=== PATIENT | female | born 1965 | race African-American/Black ===

== ENCOUNTER 2019-12-09 21:06 | Inpatient (IN) ==
[2019-12-09] MEDS ORDERED: ASPIRIN 325 MG TABLET PO STA (21:28)
[2019-12-09] MEDS ORDERED: ONDANSETRON 4 MG/2 ML VIAL IV STA (21:28)
[2019-12-09] MEDS ORDERED: MORPHINE 4 MG/1 ML VIAL IV STA (21:28)
[2019-12-09] MEDS ORDERED: ALUM/MAG/SIMETH/LIDO VISC 1:1 30 ML BOTTLE PO STA (21:28)
[2019-12-09] MEDS ORDERED: NITROGLYCERIN 2% OINT 1 INCH/GM PACK TOP STA (21:28)
[2019-12-09 22:03] LABS: Basophils % 0.3 % (0.0-0.8); Hematocrit 38.6 VOL% (35.7-47.0); Lymphocytes % 26.5 % (21.3-54.2); Mean Corpuscular HGB Conc 31.1 GM/DL (32-36); Mean Corpuscular Volume 80.9 FL (87-102); Mean Platelet Volume 10.8 FL (9.6-12.0); Monocytes % 5.2 % (1.7-12.7); Platelet Count 122 T/CUMM (130-400); Red Blood Count 4.77 MC/CUMM (3.8-5.5); Red Cell Distribution Width 12.8 % (9.3-17.3); White Blood Count 3.6 T/CUMM (4-12)
[2019-12-09 22:15] LABS: PT Patient Result 10.7 SECS (9.8-11.9)
[2019-12-09 22:27] LABS: Albumin 2.9 G/DL (3.4-5.0); Bilirubin,Total 0.4 MG/DL (0.2-1.0); Calcium 8.2 MG/DL (8.5-10.1); Osmolality,Calculated 275.7 MOS/KG (273-304); Total Protein 7.4 G/DL (6.4-8.3)
[2019-12-09 22:28] LABS: Band Neutrophils 2 % (0-10); Lymphocytes 20 % (20-55); Platelet Estimate Adequate; Segmented Neutrophils 73 % (50-85); Total Cells Counted 100
[2019-12-09] MEDS ORDERED: POTASSIUM CHLORIDE 20 MEQ TABLET PO STA (22:47)
[2019-12-09 23:39] LABS: Ferritin 284.1 ng/ml (8-252)
[2019-12-09] MEDS ORDERED: HYDROXYCHLOROQUINE 200 MG TABLET PO STA (23:54)
[2019-12-09] MEDS ORDERED: AZITHROMYCIN INJ 500 MG in SODIUM CHLORIDE 0.9% 250 ML IV STA (23:54)
[2019-12-09] MEDS ORDERED: methylPREDNISolone SOD SUC 125 MG/2 ML VIAL IV STA (23:54)
[2019-12-10] MEDS ORDERED: ONDANSETRON 4 MG/2 ML VIAL IV PRN (01:16)
[2019-12-10] MEDS ORDERED: DEXTROSE 50% 25 GM/50 ML SYRINGE IV PRN (01:16)
[2019-12-10] MEDS ORDERED: GLUCAGON 1 MG VIAL IM PRN (01:16)
[2019-12-10] MEDS ORDERED: ZALEPLON 5 MG CAPSULE PO PRN (01:16)
[2019-12-10] MEDS ORDERED: POTASSIUM CHLORIDE 20 MEQ TABLET PO PRN (02:09)
[2019-12-10] MEDS: ENOXAPARIN 40 MG/0.4 ML SYRINGE SUBCUT SCH (03:00)
[2019-12-10] MEDS: cefTRIAXone 1,000 MG in SYRINGE 1 EACH IV SCH (03:00)
[2019-12-10 05:43] LABS: Hematocrit 38.8 VOL% (35.7-47.0); Hemoglobin 12.3 GM/DL (12.0-16.0); Immature Granulocytes % 0.3 %; Immature Granulocytes Absolute 0.01 #; Lymphocytes # 0.5 10*3/uL (1.4-4.0); Lymphocytes % 13.9 % (21.3-54.2); Mean Corpuscular HGB Conc 31.7 GM/DL (32-36); Mean Corpuscular Volume 79.7 FL (87-102); Mean Platelet Volume 11.9 FL (9.6-12.0); Monocytes % 2.4 % (1.7-12.7); Neutrophils % 83.4 % (38.7-73.9); Platelet Count 134 T/CUMM (130-400); Red Blood Count 4.87 MC/CUMM (3.8-5.5); Red Cell Distribution Width 12.8 % (9.3-17.3); White Blood Count 3.7 T/CUMM (4-12)
[2019-12-10 06:01] LABS: Alanine Aminotransferase 18 U/L (13-56); Albumin 2.9 G/DL (3.4-5.0); Alkaline Phosphatase 72 U/L (45-117); Aspartate Amino Transferase 24 U/L (0-37); Bilirubin,Total < 0.39 MG/DL (0.2-1.0); Blood Urea Nitrogen 5 MG/DL (7-18); Calcium 8.2 MG/DL (8.5-10.1); Estimated Glom Filtration Rate 86 ML/MIN; Ferritin 281.3 ng/ml (8-252); Glucose 201 MG/DL (74-106); Osmolality,Calculated 277.7 MOS/KG (273-304); Total Protein 7.3 G/DL (6.4-8.3)
[2019-12-10 06:11] LABS: Band Neutrophils 1 % (0-10); Hypochromasia 1+; Lymphocytes 10 % (20-55); Ovalocytes Slight; Platelet Estimate Adequate; Segmented Neutrophils 88 % (50-85); Total Cells Counted 100
[2019-12-10] MEDS ORDERED: DEXTROSE 10% 250 ML BAG IV PRN (07:00)
[2019-12-10] MEDS ORDERED: PANTOPRAZOLE 40 MG TABLET PO SCH (09:00)
[2019-12-10] MEDS: ZINC SULFATE 220 MG CAPSULE PO SCH (09:07)
[2019-12-10] MEDS ORDERED: HYDROXYCHLOROQUINE 200 MG TABLET PO ONE (15:00)
[2019-12-10] MEDS: AZITHROMYCIN 250 MG TABLET PO SCH (20:30)
[2019-12-11 09:25] LABS: Hemoglobin 11.7 GM/DL (12.0-16.0); Immature Granulocytes % 0.4 %; Immature Granulocytes Absolute 0.02 #; Lymphocytes # 0.9 10*3/uL (1.4-4.0); Lymphocytes % 18.4 % (21.3-54.2); Mean Corpuscular HGB Conc 31.6 GM/DL (32-36); Mean Corpuscular Volume 78.4 FL (87-102); Mean Platelet Volume 11.4 FL (9.6-12.0); Monocytes % 7.3 % (1.7-12.7); Neutrophils % 73.9 % (38.7-73.9); Platelet Count 163 T/CUMM (130-400); Red Blood Count 4.72 MC/CUMM (3.8-5.5); Red Cell Distribution Width 12.7 % (9.3-17.3); White Blood Count 4.8 T/CUMM (4-12)
[2019-12-11 09:42] LABS: Calcium 8.4 MG/DL (8.5-10.1); Osmolality,Calculated 280.5 MOS/KG (273-304)
[2019-12-11 09:48] LABS: Band Neutrophils 2 % (0-10); Hypochromasia 1+; Lymphocytes 16 % (20-55); Platelet Estimate Adequate; Segmented Neutrophils 77 % (50-85); Total Cells Counted 100
[2019-12-11] MEDS: amLODIPine 10 MG TABLET PO SCH (10:21)
[2019-12-11] MEDS: cefTRIAXone 1,000 MG in SYRINGE 1 EACH IV SCH (10:21)
[2019-12-11] MEDS: ENOXAPARIN 40 MG/0.4 ML SYRINGE SUBCUT SCH (10:21)
[2019-12-11] MEDS: ROSUVASTATIN 10 MG TABLET PO SCH (20:52)
[2019-12-11] MEDS: AZITHROMYCIN 250 MG TABLET PO SCH (20:52)
[2019-12-12 05:45] LABS: Hematocrit 37.2 VOL% (35.7-47.0); Hemoglobin 11.3 GM/DL (12.0-16.0); Immature Granulocytes % 0.4 %; Immature Granulocytes Absolute 0.02 #; Lymphocytes # 1.2 10*3/uL (1.4-4.0); Lymphocytes % 27.6 % (21.3-54.2); Mean Corpuscular HGB Conc 30.4 GM/DL (32-36); Mean Corpuscular Volume 82.5 FL (87-102); Monocytes % 7.8 % (1.7-12.7); Neutrophils % 64.2 % (38.7-73.9); Platelet Count 179 T/CUMM (130-400); Red Blood Count 4.51 MC/CUMM (3.8-5.5); White Blood Count 4.5 T/CUMM (4-12)
[2019-12-12 06:10] LABS: Calcium 8.2 MG/DL (8.5-10.1); Osmolality,Calculated 278.7 MOS/KG (273-304)
[2019-12-12 06:17] LABS: Hypochromasia 1+; Lymphocytes 20 % (20-55); Ovalocytes Slight; Platelet Estimate Adequate; Segmented Neutrophils 74 % (50-85); Total Cells Counted 100
[2019-12-12] MEDS: cefTRIAXone 1,000 MG in SYRINGE 1 EACH IV SCH (10:31)
[2019-12-12] MEDS: amLODIPine 10 MG TABLET PO SCH (10:31)
[2019-12-12] MEDS: ENOXAPARIN 40 MG/0.4 ML SYRINGE SUBCUT SCH (10:31)
[2019-12-12] MEDS: ZINC SULFATE 220 MG CAPSULE PO SCH (10:31)
[2019-12-12] MEDS: HYDROXYCHLOROQUINE 200 MG TABLET PO SCH ×2 (17:22→20:58)
[2019-12-12] MEDS: AZITHROMYCIN 250 MG TABLET PO SCH (20:58)
[2019-12-12] MEDS: ROSUVASTATIN 10 MG TABLET PO SCH (20:58)
[2019-12-13 05:46] LABS: Basophils % 0.2 % (0.0-0.8); Hematocrit 40.7 VOL% (35.7-47.0); Hemoglobin 12.4 GM/DL (12.0-16.0); Immature Granulocytes % 0.2 %; Immature Granulocytes Absolute 0.01 #; Lymphocytes # 1.2 10*3/uL (1.4-4.0); Mean Corpuscular HGB Conc 30.5 GM/DL (32-36); Mean Corpuscular Volume 81.6 FL (87-102); Mean Platelet Volume 10.6 FL (9.6-12.0); Monocytes % 8.7 % (1.7-12.7); Neutrophils % 64.9 % (38.7-73.9); Platelet Count 205 T/CUMM (130-400); Red Blood Count 4.99 MC/CUMM (3.8-5.5); Red Cell Distribution Width 12.8 % (9.3-17.3); White Blood Count 4.6 T/CUMM (4-12)
[2019-12-13 06:04] LABS: Calcium 8.4 MG/DL (8.5-10.1); Osmolality,Calculated 276.8 MOS/KG (273-304)
[2019-12-13 06:11] LABS: Hypochromasia Slight; Lymphocytes 23 % (20-55); Microcytosis Slight; Platelet Estimate Adequate; Segmented Neutrophils 71 % (50-85); Total Cells Counted 100
[2019-12-13] MEDS: amLODIPine 10 MG TABLET PO SCH (08:47)
[2019-12-13] MEDS: HYDROXYCHLOROQUINE 200 MG TABLET PO SCH (08:47)
[2019-12-13] MEDS: ENOXAPARIN 40 MG/0.4 ML SYRINGE SUBCUT SCH (08:47)
[2019-12-13 09:42] VITALS: BP 114/69
== END 2019-12-13 13:25 | disposition home or self-care (01) | DRG 177 ==
LOC: EDBD → N.ED 21:06 → N.EDINP 12-10 01:16 → N.2W 12-10 02:00
PROVIDERS: ADMIT Family Medicine; ATTEND Family Medicine